=== PATIENT | female | born 2005 | race Asian ===

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

== ENCOUNTER → 2023-10-18 15:02 | Outpatient (CLI) | payer OTHER, SELFPAY ==
--- NOTE | 2023-10-18 | DI.MRI.S_ITS ---
PROCEDURE: MR HEAD/BRAIN WO/W CON INDICATIONS: GLIOMA OF MID BRAIN TECHNIQUE: Noncontrast axial T1 spin echo, axial T2 fast spin echo, sagittal and axial FLAIR, coronal T2 fast spin echo, axial gradient echo, axial diffusion and ADC through the brain. After the administration of contrast, axial and coronal and sagittal 3D VIBE or T1 spin echo with fat saturation through the brain. COMPARISON: [facility], MR, MR HEAD/BRAIN WO/W CON, 02/11/2019, 7:55. FINDINGS: Image quality: Dental artifact limits evaluation of portions of the posterior fossa and brainstem. CSF Spaces: Basal cisterns are patent. No extra-axial fluid collections. Ventricles are normal in size and shape. Brain: Again seen thickening of the inferior aspect of the tectal plate (5/14) measuring approximately 7 x 7 millimeters, not significantly changed compared to prior exam. There is no associated enhancement. 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 No midline shift. Gliosis from prior ventriculostomy catheter. No intracranial bleeds. No abnormal intracranial enhancement, however evaluation is significantly limited secondary to dental artifact. The brainstem appears normal. Diffusion-weighted images demonstrate no acute infarct, however evaluation is significantly limited secondary to dental artifact. No chronic ischemic insults. Normal intravascular flow voids are present. Skull and face: Calvarial marrow is normal in signal. Orbits appear normal. Sinuses: Sinuses and mastoids appear clear. IMPRESSION: 1. Again seen is thickening of the inferior aspect of the tectal plate, similar in appearance to prior. No associated enhancement is seen. 2. There appears to be decreased aqua ductal stenosis. The ventricles are grossly normal in size. 3. 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 4. Evaluation is limited secondary to dental hardware artifact. Dictated by: Omar Evans M.D. on 10/22/2023 at 13:45 Approved by: Omar Evans M.D. on 10/22/2023 at 13:54
== END ==
LOC: MRI 15:03
PROVIDERS: PCP General Practice; Referring Provider General Practice; Visit Provider General Practice
DX: C71.7 Malignant neoplasm of brain stem (principal)
CPT/HCPCS: 70553; A9579

== ENCOUNTER → 2024-01-29 09:45 | Outpatient (CLI) | payer OTHER, SELFPAY ==
[2024-01-29 12:16] LABS: Urine N gonorrhoeae NOT DETECTED
[2024-01-29 12:23] LABS: Urine Chlamydia NOT DETECTED
== END ==
PROVIDERS: Referring Provider Student in an Organized Health Care Education/Training Program; Visit Provider Student in an Organized Health Care Education/Training Program
DX: Z34.01 Encounter for supervision of normal first pregnancy, first trimester (principal); Z3A.09 9 weeks gestation of pregnancy
CPT/HCPCS: 87491; 87591

== ENCOUNTER → 2024-02-26 13:52 | Outpatient (CLI) | payer OTHER, SELFPAY ==
[2024-02-26 15:04] LABS: Add Manual Diff / Slide Review NO; Basophils Absolute Auto 0 /uL (0-100); Basophils Percent Auto 0.3 % (0-2); Eosinophils Absolute Auto 200 /uL (0-450); Eosinophils Percent Auto 2.8 % (2-4); Hematocrit 31.2 % (36-46); Lymphocytes Absolute Auto 1400 /uL (1100-4500); Lymphocytes Percent Auto 15.6 % (25-40); Mean Corpuscular HGB Conc 35.1 % (30-36); Mean Corpuscular Hemoglobin 31.9 PG (26-34); Mean Corpuscular Volume 90.9 fL (80-100); Monocytes Absolute Auto 700 /uL (0-900); Monocytes Percent Auto 7.4 % (3-14); Neutrophils Absolute Auto 6600 /uL (1500-7000); Neutrophils Percent Auto 73.9 % (50-75); Platelet Count 270 X10^3/uL (150-400); Red Blood Cell Count 3.43 X10^6/uL (4.0-5.2); Red Cell Distribution Width 13.2 % (11.6-14.8)
[2024-02-26 15:18] LABS: Hemoglobin A1C% w Est Avg Glu 4.7 % (4.0-6.0)
[2024-02-26 15:32] LABS: Natera Collection Specimen Collected
[2024-02-27 06:05] LABS: RPR Screen Non Reactive (Non Reactive)
[2024-02-28 07:37] LABS: Varicella IgG Antibody 1076 index (Immune >165)
[2024-02-28 15:31] LABS: Hepatitis B Surface Antigen NEGATIVE s/c (NEGATIVE); Rubella Antibody IgG 41.7 IU/mL (>15)
[2024-02-28 15:46] LABS: HIV 1 & 2 Ab/Ag 4th Gen Combo NEGATIVE (NEGATIVE); Hep C Virus Ab w/Reflex Quant NEGATIVE s/c (NEGATIVE)
== END ==
PROVIDERS: Referring Provider Student in an Organized Health Care Education/Training Program; Visit Provider Student in an Organized Health Care Education/Training Program
DX: O99.210 Obesity complicating pregnancy, unspecified trimester (principal); Z3A.13 13 weeks gestation of pregnancy
CPT/HCPCS: 36415; 80055; 83036; 86787; 86803; 86850; 86900; 86901; 87077; 87086; 87147; 87389

== ENCOUNTER → 2024-03-26 14:14 | Outpatient (CLI) | payer OTHER, SELFPAY ==
[2024-03-28 13:36] LABS: Candida species Negative (Negative); Gardnerella vaginalis Negative (Negative); Trichomoas vaginalis Negative (Negative)
== END ==
PROVIDERS: Visit Provider Obstetrics & Gynecology
DX: N89.8 Other specified noninflammatory disorders of vagina (principal)
CPT/HCPCS: 87480; 87510; 87660

== ENCOUNTER → 2024-04-10 11:38 | Outpatient (CLI) | payer OTHER, SELFPAY ==
[2024-04-11 12:36] LABS: Candida species Negative (Negative); Gardnerella vaginalis Negative (Negative); Trichomoas vaginalis Negative (Negative)
== END ==
PROVIDERS: Visit Provider Obstetrics & Gynecology
DX: N89.8 Other specified noninflammatory disorders of vagina (principal)
CPT/HCPCS: 87480; 87510; 87660

== ENCOUNTER → 2024-04-17 13:38 | Outpatient (CLI) | payer OTHER, SELFPAY ==
--- NOTE | 2024-04-17 14:00 | DI.US.S_ITS ---
PROCEDURE: US OB >= 14 WEEKS FETUS INDICATIONS: 20 week anatomy OUTSIDE/PRIOR DATING DATA: Last menstrual period (LMP): 11/23/23. LMP-based estimated date of delivery (SARITA): 08/29/24. First dating scan (date and location): 01/29/24. Estimated date of delivery (SARITA) from first dating scan: 08/27/24. The calculations are made using the working SARITA of 08/29/24. TECHNIQUE: Real-time scanning was performed of the fetus, with image documentation and biometric measurements. Endovaginal scanning: Not performed COMPARISON: None. FINDINGS: General: A single living intrauterine gestation is present. Presentation: Breech. Placenta: Placental position is anterior , without previa. Amniotic fluid index: 13.7 cm, normal range is 5-24 cm. Single deepest vertical pocket is 4.6 cm. heart rate: 147 beats per minute. Maternal cervical canal: Closed and 3.1 cm long. Normal lower limit is 2.5 cm. biometrics: Biparietal diameter: 5.0 cm, 21 weeks one day Head circumference: 19.4 cm, 21 weeks four days Abdominal circumference: 16.6 cm, 21 weeks four days Femur length: 3.9 cm, 22 weeks two days Clinically estimated gestational age: 20 weeks six days Composite gestational age from present scan: 21 weeks five days Estimated weight and percentile: 459 g, 92nd percentile Anatomic survey: Neuro: Ventricles are non-dilated at less than 10 mm. Cisterna magna is normal at 3-11 mm. Cerebellum is normal in size and morphology. Nuchal skin fold: Normal at less than 6 mm between 14-21 weeks gestational age. Face: Facial profile was not seen. Questionable shadow extending from the right upper lip to right nares. Spine: No evidence for spina bifida. Heart: 4-chambered heart is present, with normal ventricular outflow tracts. Diaphragm: Diaphragm is intact. Stomach: Left-sided stomach is present. Kidneys: No hydronephrosis. Normal is less than 5 mm in 2nd trimester, less than 7 mm in 3rd trimester. Cord: 3-vessel cord has orthotopic insertion. Bladder: Normal in size. Extremities: All 4 extremities identified. IMPRESSION: Single living intrauterine Closed cervix and normal amniotic fluid volume. Composite growth six days ahead of the expected gestational age. Other than facial features, normal anatomy was seen. Recommend follow-up exam in one week with attention to facial features. We strive to produce accurate, complete, and clear reports of imaging services. To assist us in improving patient care, this report was composed using standard report templates and voice recognition software. Therefore, it may contain abnormal punctuation, insertions and/or omissions. Occasional wrong-word or sound-alike substitutions may occur. Though we review the report and make efforts to correct it, we do recommend that the report be read carefully in proper context to recognize any text inaccuracies. Dictated by: Sofia Merino M.D. on 04/17/2024 at 17:50 Approved by: Sofia Merino M.D. on 04/17/2024 at 17:59
== END ==
LOC: US 13:38
PROVIDERS: Referring Provider Student in an Organized Health Care Education/Training Program; Visit Provider Student in an Organized Health Care Education/Training Program
DX: Z34.02 Encounter for supervision of normal first pregnancy, second trimester (principal); Z3A.21 21 weeks gestation of pregnancy
CPT/HCPCS: 76811

== ENCOUNTER → 2024-04-22 10:50 | Outpatient (CLI) | payer OTHER, SELFPAY ==
[2024-04-22 12:31] LABS: Add Manual Diff / Slide Review NO; Basophils Absolute Auto 0 /uL (0-100); Basophils Percent Auto 0.4 % (0-2); Eosinophils Absolute Auto 200 /uL (0-450); Eosinophils Percent Auto 1.8 % (2-4); Hematocrit 32.9 % (36-46); Hemoglobin 11.7 g/dL (12.0-16.0); Lymphocytes Absolute Auto 1300 /uL (1100-4500); Lymphocytes Percent Auto 12.1 % (25-40); Mean Corpuscular HGB Conc 35.5 % (30-36); Mean Corpuscular Hemoglobin 32.7 PG (26-34); Monocytes Absolute Auto 600 /uL (0-900); Monocytes Percent Auto 5.3 % (3-14); Neutrophils Absolute Auto 8700 /uL (1500-7000); Neutrophils Percent Auto 80.4 % (50-75); Platelet Count 295 X10^3/uL (150-400); Red Blood Cell Count 3.58 X10^6/uL (4.0-5.2); Red Cell Distribution Width 13.4 % (11.6-14.8); White Blood Cell Count 10.8 X10^3/uL (4.5-11.0)
[2024-04-22 14:48] LABS: HEMOLYSIS < 15 (0-50); Iron 90 ug/dL (37-170)
[2024-04-22 15:00] LABS: Percent Iron Saturation 27 % (15-50); Total Iron Binding Capacity 329 ug/dL (265-497)
[2024-04-22 15:04] LABS: Transferrin 265 mg/dL (206-381)
[2024-04-22 16:11] LABS: Ferritin 16 ng/mL (6-137)
== END ==
LOC: LAB 10:51
PROVIDERS: Referring Provider Student in an Organized Health Care Education/Training Program; Visit Provider Student in an Organized Health Care Education/Training Program
DX: O99.019 Anemia complicating pregnancy, unspecified trimester (principal)
CPT/HCPCS: 36415; 82728; 83540; 83550; 85025

== ENCOUNTER 2024-06-13 15:35 | Outpatient (CLI) | payer SELFPAY ==
[2024-06-13 16:59] LABS: Add Manual Diff / Slide Review NO; Basophils Absolute Auto 0 /uL (0-100); Basophils Percent Auto 0.3 % (0-2); Eosinophils Absolute Auto 200 /uL (0-450); Eosinophils Percent Auto 1.4 % (2-4); Hematocrit 31.1 % (36-46); Hemoglobin 10.6 g/dL (12.0-16.0); Lymphocytes Absolute Auto 1600 /uL (1100-4500); Lymphocytes Percent Auto 13.3 % (25-40); Mean Corpuscular HGB Conc 34.2 % (30-36); Mean Corpuscular Hemoglobin 31.9 PG (26-34); Mean Corpuscular Volume 93.1 fL (80-100); Monocytes Absolute Auto 700 /uL (0-900); Neutrophils Absolute Auto 9500 /uL (1500-7000); Platelet Count 252 X10^3/uL (150-400); Red Blood Cell Count 3.33 X10^6/uL (4.0-5.2); Red Cell Distribution Width 13.3 % (11.6-14.8); White Blood Cell Count 12.1 X10^3/uL (4.5-11.0)
== END 2024-06-13 17:20 | disposition home or self-care (01) ==
LOC: LABOR 18:37 → OB 06-16 11:14
PROVIDERS: Obstetrics & Gynecology; Referring Provider Student in an Organized Health Care Education/Training Program; Visit Provider Student in an Organized Health Care Education/Training Program
DX: O26.893 Other specified pregnancy related conditions, third trimester (principal); R42 Dizziness and giddiness; Z3A.29 29 weeks gestation of pregnancy
CPT/HCPCS: 59025; 59050; 85025; G0378; G0379

== ENCOUNTER → 2024-07-16 07:21 | Outpatient (CLI) | payer OTHER, MEDICAID, SELFPAY ==
[2024-07-16 09:34] LABS: Hematocrit 32.8 % (36-46); Hemoglobin 11.3 g/dL (12.0-16.0)
[2024-07-16 10:15] LABS: GTT (PREG) 1 Hour PP 50gm Dose 119 mg/dL (76-139)
== END ==
PROVIDERS: Referring Provider Student in an Organized Health Care Education/Training Program; Visit Provider Student in an Organized Health Care Education/Training Program
DX: Z34.02 Encounter for supervision of normal first pregnancy, second trimester (principal); Z3A.26 26 weeks gestation of pregnancy
CPT/HCPCS: 36415; 82950; 85014; 85018

== ENCOUNTER 2024-07-25 10:05 | Observation (INO) | payer OTHER, SELFPAY ==
[2024-07-25 11:00] LABS: Appearance Urine UA CLEAR; Bilirubin Urine UA NEGATIVE (NEGATIVE); Color Urine UA YELLOW; Glucose Urine UA NEGATIVE (Negative); Ketones Urine UA NEGATIVE (NEGATIVE); Leukocyte Esterase Urine UA NEGATIVE (NEGATIVE); Nitrite Urine UA NEGATIVE (Negative); Occult Blood Urine UA NEGATIVE (Negative); Protein Urine UA NEGATIVE (Negative); Specific Gravity Urine UA 1.015 (1.000-1.035); Urobilinogen Urine UA 0.2 E.U./dL (0.2)
[2024-07-25 11:02] LABS: Urine Volume 10mL (spun); pH Urine UA 6.5 (4.5-8.0)
[2024-07-25 11:04] LABS: Bacteria Urine None Seen; Culture Indicated Urine Cult Not Indicated; RBC Urine None Seen (0-5/HPF); Squamous Epithelial Cell Urine 1-5 /HPF (0-5/HPF); WBC Urine 0-1/HPF (0-5/HPF)
--- NOTE | 2024-07-25 13:00 | P.TNLD_ITS ---
Visit Information Visit Information Date of evaluation: 07/25/24 Primary OB Provider: Izabel Boogie Reason for Evaluation: Yes rule out labor Vital Signs Vital Signs: Reviewed in OBIX, within normal parameters [facility] Medical History (Updated 07/25/24 @ 13:02 by Izabel Boogie DO) Migraine without aura Hydrocephalus Left fibular fracture Healthy child Surgical History (Updated 01/16/24 @ 13:17 by Nely Haley, RN) [place] teeth extracted (~10/2023) History of craniotomy (~2018) Family History (Updated 01/16/24 @ 13:27 by Nely Haley, RN) Grandmother Breast cancer Grandfather Diabetes mellitus Family/Other Diabetes mellitus Father Pre-diabetes Social History marital status: unmarried,single number of children: 0 household members: family (parents) lives independently: No caregiver/support person: No housing: house pets and animals: Yes (cats and dogs) education level: college (some college) 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 current occupational exposures/hazards: Yes (not involved in med passes or wound care) special matthew needs: No travel history: over 6 months ago seatbelt use: always helmet use: Yes water heater temp set < 120 deg: Yes working smoke detector in home: Yes fire extinguisher in home: Yes carbon monox detector in home: Yes firearms in home: Yes firearms unloaded and locked: Yes Smoking Status: Current some day smoker (working on quitting vaping) Tobacco: How many years used: 4 second hand exposure: No alcohol intake: former (2-6/week (only on weekends) when not ) substance use type: does not use during the past year weight has: other (fluctuates) well-balanced diet: rarely or never daily servings fruits/ve-1 caffeine: Yes (espresso) Type(s) of exercise: weight lifting and running Objective Labs Labs: Laboratory Results - last 24 hr 07/25/24 10:45 Urine Color Yellow Urine Appearance Clear Urine pH 6.5 Ur Specific Kipling 1.015 Urine Protein Negative Urine Glucose (UA) Negative Urine Ketones Negative Urine Occult Blood Negative Urine Nitrate Negative Urine Bilirubin Negative Urine Urobilinogen 0.2 Ur Leukocyte Esterase Negative Urine RBC None seen Urine WBC 0-1/hpf Ur Squamous Epith Cells 1-5 /hpf Urine Bacteria None seen Ur Culture Indicated? Cult not indicated Vol Urine Centrifuged 10ml (spun) Evaluation Evaluation Baseline heart rate: 130 Variability: Moderate (11-25) monitor accelerations: Present Monitor Decelerations: Absent Contraction Frequency (minutes): 5 Status: Category l Cervical dilation (cm): 0 Diagnosis, Plan/Disposition Final Diagnosis (1) uterine contractions in third trimester, antepartum: Status: Acute Plan/Disposition Plan: 19-year-old at 35+ 0 weeks presenting to triage with regular painful contractions. After oral hydration and observation, her contractions spaced out. She remained with a closed cervix during her observation. -reviewed labor precautions -follow up in the office as scheduled OB Disposition: home
== END 2024-07-25 13:05 | disposition home or self-care (01) ==
PROVIDERS: Admitting Provider Student in an Organized Health Care Education/Training Program; Referring Provider Student in an Organized Health Care Education/Training Program; Visit Provider Student in an Organized Health Care Education/Training Program
DX: O47.03 False labor before 37 completed weeks of gestation, third trimester (principal); Z3A.35 35 weeks gestation of pregnancy
CPT/HCPCS: 59025; 59050; 81001; G0378; G0379

== ENCOUNTER → 2024-08-13 06:46 | Outpatient (CLI) | payer OTHER, SELFPAY ==
--- NOTE | 2024-08-13 06:47 | DI.US.S_ITS ---
PROCEDURE: US OB LIMITED INDICATIONS: EFW; FACIAL VIEWS OUTSIDE/PRIOR DATING DATA: Last menstrual period (LMP): 11/13/2023. LMP-based estimated date of delivery (SARITA): 08/29/2024. First dating scan (date and location): 01/29/2024. Estimated date of delivery (SARITA) from first dating scan: 08/25/2024. The calculations are made using the clinical SARITA of 08/29/2024. TECHNIQUE: Real-time scanning was performed of the fetus, with image documentation. COMPARISON: [facility], , OB >= 14 WEEKS FETUS, 04/17/2024, 14:01. FINDINGS: A single living intrauterine gestation is present. Presentation: Vertex. Placenta: Placental position is anterior, without previa. Amniotic fluid index: 19.7 cm, normal range is 5-24 cm. Single deepest vertical pocket is 6.9 cm. heart rate: 140 beats per minute. Maternal cervical canal: Not assessed BPD: 9 cm 36 weeks 3 days HC: 32.8 cm 37 weeks 1 day AC: 32.7 cm 36 weeks 4 days FL: 7.3 cm 37 weeks 4 days Clinically estimated gestational age: 37 weeks 5 days Estimated gestational age from today's scan: 37 weeks 0 days. weight 3062 g, 39th percentile Other: No some lips are within normal limits. Facial profile remains not well visualized. IMPRESSION: Single live intrauterine with gestational age of 37 weeks 0 days. Facial profile remains not well seen. Nose and lips are within normal limits. Dictated by: Heather Alicea M.D. on 08/13/2024 at 22:39 Approved by: Heather Alicea M.D. on 08/13/2024 at 22:42
== END ==
PROVIDERS: Referring Provider Student in an Organized Health Care Education/Training Program; Visit Provider Student in an Organized Health Care Education/Training Program
DX: O99.213 Obesity complicating pregnancy, third trimester (principal); Z3A.37 37 weeks gestation of pregnancy
CPT/HCPCS: 76815

== ENCOUNTER 2024-08-30 21:00 | Inpatient (IN) | payer OTHER, SELFPAY ==
--- NOTE | 2024-08-30 21:42 | PM.OBHP.IH.1 ---
OB HPI Date/Time Date of admission: 08/30/24 History of Present Condition Chief complaint: labor SARITA Calculator Estimated Delivery Date Method Current WG Current Estimate 08/29/24 LMP (Certain) 40w 1d Other Estimates 08/27/24 Ultrasound #1 40w 3d : 1 Narrative: This is a 19 yo G1 at 40w1d who presents with SROM and labor. has been complicated by obesity, tectal plate glioma, GBS bactiuria, and bartholin gland cyst requiring I&D now currently on antibiotics. PAtient reports losing mucus plug today and water broke around 7pm. She is orquidea regularly. care: good care Dating criteria OB: LMP confirmed by 1st trimester US Ultrasounds: normal 1st trimester US and normal mid trimester US Obstetrical complications: none Medical complications OB: none Preadmission Labs Last OB Lab Results: Blood Type A Positive 02/26/24 14:32 Antibody Screen Negative 02/26/24 14:32 Hct 32.8 % (36-46) L 07/16/24 08:48 Hgb 11.3 g/dL (12.0-16.0) L 07/16/24 08:48 Hep Bs Antigen Negative s/c (NEGATIVE) 02/26/24 14:32 Hepatitis C Antibody Negative s/c (NEGATIVE) 02/26/24 14:32 Rubella Antibody 41.7 IU/mL (>15) 02/26/24 14:32 VZV IgG Antibody 1076 index (Immune >165) 02/26/24 14:32 Glucose 1 Hr 50 gm 119 mg/dL (76-139) 07/16/24 08:48 Hemoglobin A1c 4.7 % (4.0-6.0) 02/26/24 14:32 Glucose Tolerance Testin hr Genetic Screens: Cell-free DNA: Normal Evaluation Evaluation Baseline heart rate: 150 Variability: Average (6-10) monitor accelerations: Present Monitor Decelerations: Absent PFS Medical History (Updated 08/22/24 @ 16:31 by Izabel Boogie DO) Migraine without aura Hydrocephalus Left fibular fracture Healthy child Surgical History (Updated 01/16/24 @ 13:17 by Nely Haley RN) [place] teeth extracted (~10/2023) History of craniotomy (~2018) Family History (Updated 01/16/24 @ 13:27 by Nely Haley RN) Grandmother Breast cancer Grandfather Diabetes mellitus Family/Other Diabetes mellitus Father Pre-diabetes Social History marital status: unmarried,single number of children: 0 household members: family lives independently: No caregiver/support person: No housing: house pets and animals: Yes (cats and dogs) education level: college occupational status: employed and 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 current occupational exposures/hazards: Yes (not involved in med passes or wound care) special matthew needs: No travel history: over 6 months ago seatbelt use: always helmet use: Yes water heater temp set < 120 deg: Yes working smoke detector in home: Yes fire extinguisher in home: Yes carbon monox detector in home: Yes firearms in home: Yes firearms unloaded and locked: Yes Smoking Status: Current some day smoker Tobacco: How many years used: 4 second hand exposure: No alcohol intake: former substance use type: does not use during the past year weight has: other well-balanced diet: rarely or never daily servings fruits/ve-1 caffeine: Yes (espresso) Type(s) of exercise: weight lifting and running Meds Home Medications and Allergies Home Medications Medication Instructions Recorded Confirmed Type cetirizine 10 mg tablet (All Day 10 mg PO DAILY PRN 01/16/24 08/26/24 History Allergy (cetirizine)) cranberry 500 mg capsule 500 mg PO DAILY 01/16/24 08/26/24 History vitamin-ferrous sulfate tab PO 01/16/24 08/26/24 History 27 mg iron-folic acid 0.8 mg tablet rizatriptan 10 mg tablet 10 mg PO ONCE PRN migraine headache 01/16/24 08/26/24 History fluconazole 150 mg tablet 150 mg PO Q3D 2 doses #2 tabs 03/26/24 08/26/24 Rx hydrocortisone 1 % topical cream 1 applic topical TID PRN rash 03/26/24 08/26/24 Rx #28.35 grams loratadine 5 mg disintegrating 5 mg PO ONCE #30 tabs 03/26/24 08/26/24 Rx tablet ookryhvzaf-arepguujgvhvj-wqkltcbh 1 cap PO Q6H PRN headache #20 caps 04/10/24 08/26/24 Rx 50 mg-325 mg-40 mg capsule clindamycin HCl 300 mg capsule 300 mg PO QID 5 days #20 caps 08/26/24 08/26/24 Rx Allergies Allergy/AdvReac Type Severity Reaction Status Date / Time No Known Drug Allergies Allergy Verified 08/26/24 11:03 Assessment and Plan Assessment and Plan Assessment and Plan narrative: 19 yo G1 at 40w1d here with SROM, orquidea regularly. #SROM #Labor #GBS bactiuria -admit for labor -start ampicillin 2g bolus, followed by 1 g/hr for GBS pos status -start pitocin if labor stalls #Tectal Plate Glioma Neurosurgery note reviewed. Okay for valsalva and vaginal delivery except in setting of severe headache, nausea, vomiting, lethargy or severe vision changes. -monitor #Bartholin Gland Cyst -continue PO clindamycin Time-Based Coding :: 40 minutes spent with patient and on the chart (including review of chart, obtaining history, exam, reviewing outside data, placing orders, documenting exam and treatment plan, and counseling patient) on 08/30.
[2024-08-30 22:01] LABS: Add Manual Diff / Slide Review NO; Basophils Absolute Auto 0 /uL (0-100); Basophils Percent Auto 0.3 % (0-2); Eosinophils Absolute Auto 100 /uL (0-450); Hematocrit 34.6 % (36-46); Hemoglobin 11.9 g/dL (12.0-16.0); Lymphocytes Absolute Auto 1700 /uL (1100-4500); Lymphocytes Percent Auto 11.4 % (25-40); Mean Corpuscular HGB Conc 34.3 % (30-36); Mean Corpuscular Hemoglobin 31.1 PG (26-34); Mean Corpuscular Volume 90.6 fL (80-100); Monocytes Absolute Auto 800 /uL (0-900); Monocytes Percent Auto 5.6 % (3-14); Neutrophils Absolute Auto 12000 /uL (1500-7000); Neutrophils Percent Auto 81.7 % (50-75); Platelet Count 382 X10^3/uL (150-400); Red Blood Cell Count 3.81 X10^6/uL (4.0-5.2); Red Cell Distribution Width 14.3 % (11.6-14.8); White Blood Cell Count 14.7 X10^3/uL (4.5-11.0)
[2024-08-30] MEDS: ONDANSETRON 4 MG/2 ML INJ IV (22:06)
[2024-08-30] MEDS: AMPICILLIN 2,000 MG in SODIUM CHLORIDE 0.9% 100 ML 200 MG IV (22:07)
[2024-08-30] MEDS: fentaNYL 100 MCG/2 ML INJ 50 MCG IV (22:25)
[2024-08-30] MEDS: PROCHLORPERAZINE 10 MG/2 ML VIAL IV (23:39)
[2024-08-31] MEDS: LACTATED RINGERS 500 ML 1000 ML IV ×2 (00:20→07:30)
--- NOTE | 2024-08-31 01:24 | PM.AN.REGBLK ---
Regional Block Pre-procedure PMH/ROS narrative: 19yr old requesting MAYO/CSE for labor pain. PMH of tectal plate glioma and endoscopic third ventriculostomy at age 13. Note from SERGEY states trial of labor ok unless new onset of symptoms. Pt states no new symptoms. PSH/Anesthesia history narrative: ETV age 13 ASA Class: II Labs: Hct 34.6 % (36-46) L 08/30/24 21:45 Plt Count 382 X10^3/uL (150-400) 08/30/24 21:45 Medications: Current Medications Generic Name Dose Route Start Last Admin Trade Name Freq PRN Reason Stop Dose Admin Calcium Carbonate 1,000 mg 08/30/24 21:36 Calcium Carbonate 500 Mg Tab PO Q2HR PRN Dyspepsia Carboprost Tromethamine 250 mcg 08/30/24 21:36 Carboprost 250 Mcg/Ml Ampul IM Q90M PRN Bleeding Diphenhydramine HCl 25 mg 08/31/24 01:15 Diphenhydramine 50 Mg/Ml Vial IV Q10M PRN Pruritis Diphenhydramine HCl 25 mg 08/31/24 01:30 Diphenhydramine 50 Mg/Ml Vial IV 09/01/24 01:31 Q30MIN SERGEY Ephedrine Sulfate 5 mg 08/31/24 01:15 Ephedrine 50 Mg/Ml Vial IV Q5M PRN Blood pressure decrease more than 20% of baseline. Fentanyl 50 mcg 08/30/24 21:36 08/30/24 22:25 Fentanyl 100 Mcg/2 Ml Inj IV 50 mcg Q1H PRN Administration Pain, Moderate (4-6) Lactated Ringer's 1,000 mls @ 100 mls/hr 08/30/24 21:45 Lactated Ringers IV 08/31/24 07:44 CONT [facility] Oxytocin/Lactated Ringer's 30 unit in 500 mls @ 200 mls/hr 08/30/24 21:36 Oxytocin Premix IV CONT PRN Bleeding Protocol Tranexamic Acid 1,000 mg/ 100 mls @ 600 mls/hr 08/30/24 21:36 Sodium Chloride IV NOW PRN Bleeding Ampicillin Sodium 1,000 mg/ 100 mls @ 200 mls/hr 08/31/24 00:00 Sodium Chloride IV Q4H SERGEY FENT 2MCG/ML BUPIV 0.125% EPI 200 mcg in 100 mls @ 6 mls/hr 08/31/24 01:15 Fentanyl/Bupiv/Ns 2mcg/Ml - 0.125% EPIDURAL CONT SERGEY Lidocaine HCl 20 ml 08/30/24 21:36 Lidocaine 1% 20 Ml INJ INTRA-OP PRN Post Delivery Methylergonovine Maleate 0.2 mg 08/30/24 21:36 Methylergonovine 0.2 Mg Tablet PO Q6HR PRN Heavy Bleeding Methylergonovine Maleate 0.2 mg 08/30/24 21:36 Methylergonovine 0.2 Mg/Ml Vial IM NOW PRN Bleeding Mineral Oil 30 ml 08/30/24 21:36 Mineral Oil 30 Ml Udc TOP PRN PRN Version Misoprostol 800 mcg 08/30/24 21:36 Misoprostol 200 Mcg Tablet SC NOW PRN Bleeding Misoprostol 400 mcg 08/30/24 21:36 Misoprostol 200 Mcg Tablet SL NOW PRN Bleeding Nalbuphine HCl 2.5 mg 08/31/24 01:15 Nalbuphine 20 Mg/Ml Ampul IV Q10M PRN Pruritis Naloxone HCl 0.2 mg 08/30/24 21:36 Naloxone 0.4 Mg/Ml Vial IV Q2MIN PRN Opiate Reversal Naloxone HCl 0.4 mg 08/31/24 01:17 Naloxone 0.4 Mg/Ml Vial IV Q2MIN PRN Opiate Reversal Ondansetron HCl 4 mg 08/30/24 21:36 08/30/24 22:06 Ondansetron 4 Mg/2 Ml Inj IV 4 mg Q4HR PRN Administration Nausea And Vomiting Ondansetron HCl 4 mg 08/31/24 05:00 Ondansetron 4 Mg/2 Ml Inj IV 08/31/24 09:01 Q4HR [facility] Oxytocin 10 unit 08/30/24 21:36 Oxytocin 10 Unit/Ml Vial IM NOW PRN Bleeding Allergies: Allergies Allergy/AdvReac Type Severity Reaction Status Date / Time No Known Drug Allergies Allergy Verified 08/26/24 11:03 Procedure Insertion date: 08/31/24 Insertion time: 00:45 Prep/Local: 1% lidocaine (chloroprep) Interspace: L3-4 Patient position: sitting Needle: 18 gauge Flory (27g W) Loss of resistance with: saline DEANGELO at (cm): 8 Catheter placed at SKIN (cm): 14 Catheter in SPACE (cm): 6 Sensory level: T8 Insertion: Yes CSF, No Blood, No Paresthesia with insertion, No Paresthesia with injection and No Test dose reaction Initial Medications TEST DOSE time: 00:45 TEST DOSE: 1.5% lidocaine with epinephrine 1:200k (mL): 3 BOLUS DOSE time: 00:50 BOLUS DOSE (mL): 7 BOLUS DOSE med: 0.25% bupivacaine Infusion INFUSION: 0.125% bupivacaine and with fentanyl 2 mcg/mL Initial rate (mL/hr): 6 Subsequent interventions: 1cc 0.25% intrathecal dose Post-procedure Anesthesia date START: 08/31/24 Anesthesia time START: 00:20 Anesthesia date END: 08/31/24 Anesthesia time END: 01:58 Post-procedure Anesthesia Assessment: Yes CV function: HR/BP stable, Yes Resp function: RR/sat/airway adequate, Yes Post-op hydration adequate, Yes Pain control adequate, Yes Nausea & vomiting absent, Yes Temperature > 36 C and Yes Mental status appropriate
[2024-08-31] MEDS: miSOPROStoL 200 MCG TABLET 800 MCG PR (02:05)
[2024-08-31] MEDS: OXYTOCIN PREMIX 30 UNIT/500 ML PLAST..BAG 999 UNIT IV (02:08)
[2024-08-31] MEDS: TRANEXAMIC ACID 1,000 MG in SODIUM CHLORIDE 0.9% 100 ML 600 MG IV (02:09)
--- NOTE | 2024-08-31 02:36 | PM.OBPRVD ---
Labor & Delivery Delivery date: 08/31/24 Delivery Time: 01:58 Cervical ripening method: none Induction method: none Delivery augmentation: rupture of membranes Delivery monitor: external FHT Route of delivery: L&D Laceration Description: Perineal - 2nd Degree Delivery repair: vicryl Estimated blood loss (mL): 1,300 Anesthesia Type: Epidural Narrative: This is a 19 yo G1 now P1 who presented with rupture of membranes and labor. She progressed to complete without intervention. There was a forebag that was ruptured - mec noted. RT paged and present for delivery. She had epidural analgesia. She pushed effectively for 30 minutes. Category 2 tracing for decelerations, good recovery. Following delivery of vigorous male , cord was clamped at 2 minutes of life and cut by father. Placenta delivered with gentle traction. There was a large gush of blood after placenta delivered that did not slow down with external massage. There was an issue with pitocin being inititated and 800 mcg of rectal cytotec was given. Bimanual uterine massage was performed with poor tone. Uterine sweep without significant clot burden. Pitocin was initiated as well as TXA. Uterine tone improved. Bleeding slowed to appropriate trickle. Under buttocks bag with 1000cc. There was a second degree perineal laceration repaired with suture. Bladder was emptied with straight cath. Plan for aftercare: Routine care and Other (PPH with bimanual massage and uterine sweep: CBC in AM, 2g ancef to be given; monitor bleeding closely)
[2024-08-31] MEDS: IBUPROFEN 600 MG TABLET PO ×3 (06:51→18:05)
[2024-08-31] MEDS: ACETAMINOPHEN 325 MG TABLET 650 MG PO ×3 (06:51→18:05)
[2024-08-31] MEDS: DOCUSATE 100 MG CAPSULE PO (08:07)
[2024-08-31] MEDS: DERMOPLAST SPRAY 20% 60 ML 1 SPRAY TOP (08:07)
[2024-08-31] MEDS: FERROUS SULFATE 325 MG TABLET PO (08:07)
[2024-08-31] MEDS: CEFAZOLIN 2 GM/100 ML PREMIX 100 ML IV (08:07)
[2024-08-31] MEDS: WITCH HAZEL/GLYCERIN PADS 1 EACH TOP (08:07)
[2024-08-31] MEDS: PRENATAL VIT,CALC/IRON/FOLIC 1 TABLET 1 TAB PO (08:07)
[2024-08-31 08:08] LABS: Add Manual Diff / Slide Review NO; Basophils Absolute Auto 100 /uL (0-100); Basophils Percent Auto 0.4 % (0-2); Eosinophils Absolute Auto 0 /uL (0-450); Eosinophils Percent Auto 0.1 % (2-4); Hemoglobin 8.4 g/dL (12.0-16.0); Lymphocytes Absolute Auto 1300 /uL (1100-4500); Lymphocytes Percent Auto 7.6 % (25-40); Mean Corpuscular HGB Conc 34.9 % (30-36); Mean Corpuscular Hemoglobin 31.4 PG (26-34); Mean Corpuscular Volume 90.1 fL (80-100); Monocytes Absolute Auto 1000 /uL (0-900); Monocytes Percent Auto 5.8 % (3-14); Neutrophils Absolute Auto 15300 /uL (1500-7000); Neutrophils Percent Auto 86.1 % (50-75); Platelet Count 299 X10^3/uL (150-400); Red Blood Cell Count 2.67 X10^6/uL (4.0-5.2); Red Cell Distribution Width 13.7 % (11.6-14.8); White Blood Cell Count 17.8 X10^3/uL (4.5-11.0)
[2024-08-31] MEDS: ONDANSETRON 4 MG/2 ML INJ IV (08:16)
[2024-08-31] MEDS: IRON SUCROSE 200 MG in SODIUM CHLORIDE 0.9% 100 ML 220 MG IV (09:06)
[2024-08-31] MEDS: OXYCODONE IR 5 MG TABLET PO (13:50)
[2024-09-01] MEDS: ACETAMINOPHEN 325 MG TABLET 650 MG PO ×2 (01:36→16:24)
[2024-09-01] MEDS: IBUPROFEN 600 MG TABLET PO ×2 (01:37→16:25)
[2024-09-01 05:43] LABS: Add Manual Diff / Slide Review NO; Basophils Absolute Auto 0 /uL (0-100); Basophils Percent Auto 0.4 % (0-2); Eosinophils Absolute Auto 100 /uL (0-450); Eosinophils Percent Auto 1.3 % (2-4); Hematocrit 25.3 % (36-46); Hemoglobin 8.8 g/dL (12.0-16.0); Lymphocytes Absolute Auto 2000 /uL (1100-4500); Lymphocytes Percent Auto 18.3 % (25-40); Mean Corpuscular HGB Conc 34.7 % (30-36); Mean Corpuscular Hemoglobin 31.7 PG (26-34); Mean Corpuscular Volume 91.2 fL (80-100); Monocytes Absolute Auto 800 /uL (0-900); Neutrophils Absolute Auto 8000 /uL (1500-7000); Platelet Count 308 X10^3/uL (150-400); Red Blood Cell Count 2.77 X10^6/uL (4.0-5.2)
--- NOTE | 2024-09-01 09:49 | P.DS_ITS ---
Discharge Providers Provider Date of admission: 08/30/24 21:00 Discharge Date: 09/01/24 Primary care physician: Doctor Violeta MD Consults: 08/30/24 21:36 Consult to Anesthesiology Urgent Comment: Consulting Provider: Anesthesiologist Reason for consultation: Epidural 09/01/24 02:31 Consult to Gear Hobber Routine Comment: Discharge provider: Estefani Moses MD Summary Hospital Course Date Patient Seen: 09/01/24 Time Patient Seen: 09:50 Diagnoses: 40 week gestation with spontaneous labor and spontaneous vaginal delivery with repair of second-degree tear Hospital Course: Patient is a 19 year at 40 weeks day who arrived on Labor and delivery in active labor. She received an epidural catheter for pain control. She had a spontaneous vaginal delivery on 08/31/2024. Patient denies headaches, scotomata, epigastric pain. She is without difficulty. She is urinating and ambulating well. Pain is well controlled. Patient's dates [place] catheter for Bartholin's gland cyst fell out 5 days ago. She has finished her antibiotics. Peripartum Data Infant Delivery Method: Natural Vaginal Laceration Description: Perineal - 2nd Degree Procedures: Epidural catheter, spontaneous vaginal delivery, repair of second-degree tear, IV iron therapy complications: other (Acute blood loss anemia.) [place] 1: Gender: Male Disposition of : home Discharge Diagnosis (1) Vaginal delivery: Status: Acute (2) Acute on chronic blood loss anemia: Status: Acute Status at Discharge Cognitive/behavioral status at discharge: oriented Functional status at discharge: independent ambulation Overall status at discharge: patient is progressing back to baseline Time Spent with Patient Time attestation: Total time spent providing and/or coordinating discharge services: Time spent: Less than 30 minutes Objective Labs 09/01/24 05:27 Labs: Laboratory Results - last 24 hr 09/01/24 05:27 WBC 11.0 RBC 2.77 L Hgb 8.8 L Hct 25.3 L MCV 91.2 MCH 31.7 MCHC 34.7 RDW 14.0 Plt Count 308 Neut % (Auto) 73.0 Lymph % (Auto) 18.3 L [place] % (Auto) 7.0 Eos % (Auto) 1.3 L Baso % (Auto) 0.4 Neut # (Auto) 8000 H Lymph # (Auto) 2000 [place] # (Auto) 800 Eos # (Auto) 100 Baso # (Auto) 0 Exam Vital Signs (past 8 hours): Blood pressure 95/57, pulse of 80, temperature 97.8? Narrative Exam Narrative: Abdomen is soft, nontender. Uterus is firm, at U, nontender. Mild lochia. Extremities with trace edema nontender. Discharge Plan Discharge Plan Patient Disposition: Home Discharge orders & Medications Prescriptions: New ferrous sulfate 325 mg (65 mg iron) Tablet 325 mg PO DAILY Qty: 30 0RF Continued ubkojakcxo-htnbadulpnpjp-udnc 50-325-40 mg capsule 1 cap PO Q6H PRN (Reason: headache) Qty: 20 0RF vit-ferrous sulfat-FA 27 mg iron- 0.8 mg tablet PO cranberry 500 mg capsule 500 mg PO DAILY Rx Instructions: administer with meals rizatriptan 10 mg tablet 10 mg PO ONCE PRN (Reason: migraine headache) Rx Instructions: as a single dose. Max dose 1/day cetirizine [All Day Allergy (cetirizine)] 10 mg tablet 10 mg PO DAILY PRN hydrocortisone 1 % cream 1 applic topical TID PRN (Reason: rash) Qty: 28.35 3RF loratadine 5 mg tablet,disintegrating 5 mg PO ONCE Qty: 30 3RF Discontinued fluconazole 150 mg tablet 150 mg PO Q3D Qty: 2 0RF clindamycin HCl 300 mg capsule 300 mg PO QID 5 Days Qty: 20 0RF Follow up/Referrals: Doctor Mcdaniel MD [Primary Care Provider] - Izabel Boogie DO [Physician] - 6 Weeks () Activity Restrictions/Additional Instructions: Nothing in vagina for 6 weeks Diet/Activity/Treatments Diet: Diet as Tolerated Skin/Wound/Dressing Care Report to your healthcare provider any signs of infection, such as:: chills, fever and increased pain Visit Report/Discharge Packet Stand Alone Forms: Patient Portal/API, Stroke Signs & Symptoms Discharge Data Primary Care Provider: Doctor Violeta
[2024-09-01] MEDS: FERROUS SULFATE 325 MG TABLET PO (12:28)
--- NOTE | 2024-09-01 13:14 | P.DS_ITS ---
Discharge Providers Provider Date of admission: 08/30/24 21:00 Discharge Date: 09/01/24 Primary care physician: Doctor Violeta MD Consults: 08/30/24 21:36 Consult to Anesthesiology Urgent Comment: Consulting Provider: Anesthesiologist Reason for consultation: Epidural 09/01/24 02:31 Consult to Invasive Manager Routine Comment: Discharge provider: Danika Alvarado MD Summary Hospital Course Hospital Course: Patient is a 19 year at 40 weeks day who arrived on Labor and delivery in active labor. She received an epidural catheter for pain control. She had a spontaneous vaginal delivery on 08/31/2024. Patient denies headaches, scotomata, epigastric pain. She is without difficulty. She is urinating and ambulating well. Pain is well controlled. Patient's dates De [place] catheter for Bartholin's gland cyst fell out 5 days ago. She has finished her antibiotics. Discharge Diagnosis (1) Vaginal delivery: Status: Acute (2) Acute on chronic blood loss anemia: Status: Acute Time Spent with Patient Time attestation: Total time spent providing and/or coordinating discharge services: Objective Labs 09/01/24 05:27 Labs: Laboratory Results - last 24 hr 09/01/24 05:27 WBC 11.0 RBC 2.77 L Hgb 8.8 L Hct 25.3 L MCV 91.2 MCH 31.7 MCHC 34.7 RDW 14.0 Plt Count 308 Neut % (Auto) 73.0 Lymph % (Auto) 18.3 L [place] % (Auto) 7.0 Eos % (Auto) 1.3 L Baso % (Auto) 0.4 Neut # (Auto) 8000 H Lymph # (Auto) 2000 [place] # (Auto) 800 Eos # (Auto) 100 Baso # (Auto) 0 Discharge Plan Discharge Plan Patient Disposition: Home Discharge orders & Medications Prescriptions: New ferrous sulfate 325 mg (65 mg iron) Tablet 325 mg PO DAILY Qty: 30 0RF Continued klsrulftnt-oarfpxqcngejv-swoq 50-325-40 mg capsule 1 cap PO Q6H PRN (Reason: headache) Qty: 20 0RF vit-ferrous sulfat-FA 27 mg iron- 0.8 mg tablet PO cranberry 500 mg capsule 500 mg PO DAILY Rx Instructions: administer with meals rizatriptan 10 mg tablet 10 mg PO ONCE PRN (Reason: migraine headache) Rx Instructions: as a single dose. Max dose 1/day cetirizine [All Day Allergy (cetirizine)] 10 mg tablet 10 mg PO DAILY PRN hydrocortisone 1 % cream 1 applic topical TID PRN (Reason: rash) Qty: 28.35 3RF loratadine 5 mg tablet,disintegrating 5 mg PO ONCE Qty: 30 3RF Discontinued fluconazole 150 mg tablet 150 mg PO Q3D Qty: 2 0RF clindamycin HCl 300 mg capsule 300 mg PO QID 5 Days Qty: 20 0RF Follow up/Referrals: Doctor Mcdaniel MD [Primary Care Provider] - Izabel Boogie DO [Physician] - 6 Weeks () Activity Restrictions/Additional Instructions: Nothing in vagina for 6 weeks Diet/Activity/Treatments Diet: Diet as Tolerated Skin/Wound/Dressing Care Report to your healthcare provider any signs of infection, such as:: chills, fever and increased pain Visit Report/Discharge Packet Stand Alone Forms: Patient Portal/API, Stroke Signs & Symptoms Discharge Data Primary Care Provider: Doctor Violeta
[2024-09-01] MEDS: DOCUSATE 100 MG CAPSULE PO (13:22)
[2024-09-01 17:05] VITALS: BP 93/56; PULSE 56; RESP 15; TEMP 36.9
== END 2024-09-01 16:35 | disposition home or self-care (01) | DRG 560 ==
PROVIDERS: Admitting Provider Student in an Organized Health Care Education/Training Program; Referring Provider Student in an Organized Health Care Education/Training Program; Visit Provider Student in an Organized Health Care Education/Training Program
DX: O9A.12 Malignant neoplasm complicating childbirth (principal); C71.7 Malignant neoplasm of brain stem; Z3A.40 40 weeks gestation of pregnancy; Z37.0 Single live birth; N75.0 Cyst of Bartholin's gland; O99.892 Other specified diseases and conditions complicating childbirth; O99.214 Obesity complicating childbirth; O99.334 Smoking (tobacco) complicating childbirth; F17.200 Nicotine dependence, unspecified, uncomplicated; Z98.2 Presence of cerebrospinal fluid drainage device; O70.1 Second degree perineal laceration during delivery; O99.02 Anemia complicating childbirth; D62 Acute posthemorrhagic anemia; O99.824 Streptococcus B carrier state complicating childbirth
CPT/HCPCS: 36415; 59050; 59409; 84112; 85025; 86850; 86900; 86901; G0379; J0290; J0690; J0780; J1756; J2405; J2590; J3010; S0191

== ENCOUNTER → 2025-07-06 09:29 | Outpatient (CLI) | payer OTHER, SELFPAY | PROVIDERS: PCP Student in an Organized Health Care Education/Training Program; Visit Provider Student in an Organized Health Care Education/Training Program | DX: N89.8 Other specified noninflammatory disorders of vagina (principal) | CPT/HCPCS: 87210 ==

== ENCOUNTER → 2025-07-07 07:56 | Outpatient (CLI) | payer OTHER, SELFPAY ==
[2025-07-07 08:46] LABS: Hematocrit 37.3 % (36-46); Hemoglobin 12.9 g/dL (12.0-16.0); Mean Corpuscular HGB Conc 34.6 % (30-36); Mean Corpuscular Hemoglobin 30.9 PG (26-34); Mean Corpuscular Volume 89.4 fL (80-100); Platelet Count 296 X10^3/uL (150-400)
[2025-07-07 09:01] LABS: Hemoglobin A1C% w Est Avg Glu 4.9 % (4.0-6.0)
[2025-07-07 09:02] LABS: Alanine Aminotransferase 31 IU/L (<35); Albumin 4.2 g/dL (3.5-5.0); Albumin Globulin Ratio 1.6 (1.0-2.8); Alkaline Phosphatase 73 U/L (38-126); Blood Urea Nitrogen 12 mg/dL (7-17); Calcium 9.3 mg/dL (8.4-10.2); Carbon Dioxide 24 mmol/L (22-32); Chloride 106 mmol/L (98-107); Estimated Glomerular Filt Rate > 60 mL/min (>60); Globulin 2.7 g/dL (1.7-4.1); Glucose 97 mg/dL (70-99); HEMOLYSIS < 15 (0-50); Potassium 4.5 mmol/L (3.4-5.1); Sodium 139 mmol/L (137-145); Total Protein 6.9 g/dL (6.3-8.2)
[2025-07-07 09:07] LABS: Anisocytosis 1+; Atypical Lymphocytes Percent 13.0 %; Band Neutrophils Percent 1.0 % (3-7); Eosinophils Percent Manual 1.0 % (2-4); Lymphocytes Percent Manual 4.0 % (25-45); Monocytes Percent Manual 12.0 % (2-11); Neutrophils Absolute Manual 4970 /uL (3000-5900); Segmented Neutrophils Percent 69.0 % (38-70); Total Cells Counted 100
[2025-07-07 09:32] LABS: Thyroid Stimulating Hormone 1.72 uIU/mL (0.47-4.68)
[2025-07-07 09:33] LABS: Cortisol AM (Before 10AM) 8.95 ug/dL (4.46-22.7)
== END ==
PROVIDERS: PCP Student in an Organized Health Care Education/Training Program; Referring Provider Student in an Organized Health Care Education/Training Program; Visit Provider Student in an Organized Health Care Education/Training Program
DX: R63.5 Abnormal weight gain (principal)
CPT/HCPCS: 36415; 80053; 82533; 83036; 84443; 85025